=== PATIENT | female | born 1980 | race Caucasian/White ===

== ENCOUNTER 2017-06-09 08:13 | Inpatient (IN) | payer BC ==
[2017-06-09] VITALS (7 sets, daily range): BP systolic 130–148; BP diastolic 63–92
[~2017-06-09] VITALS: Ht 167.6 cm; Wt 88.6 kg
[~2017-06-09 08:13] MED LIST: ZANTAC150 MG PO
[2017-06-09 10:36] LABS: HEMATOCRIT 31.3 % (36.0-46.0); MCH 31.8 PG (29.0-34.0); MCHC 34.2 G/DL (30.0-36.0); MCV 92.9 FL (83-99); MEAN PLAT.VOLUME 12.8 uM^3 (9.5-12.4); PLATELET COUNT 134 K/uL (156-360); RBC DIS.WIDTH-SD 51.1 % (39-53); RED BLOOD COUNT 3.37 M/uL (3.80-5.20)
[2017-06-09 11:04] LABS: ANION GAP 9 MEQ/L (2-14); CHLORIDE 107 MEQ/L (99-109); POTASSIUM 4.1 MEQ/L (3.7-5.4); SAMPLE HEMOLYSIS CHECK 0; SAMPLE ICTERIC CHECK 0; SAMPLE LIPEMIA CHECK 0; SODIUM 139 MEQ/L (136-147); TOTAL BILIRUBIN 0.4 MG/DL (0.0-1.0)
[2017-06-09 11:09] LABS: ALKALINE PHOSPHATASE 116 IU/L (3-129); GFR ESTIMATE (CALCULATED) > 59 mL/min/; GLUCOSE 67 mg/dL (70-99); UREA NITROGEN (BUN) 6 mg/dL (9-23)
[2017-06-09] MEDS ORDERED: IBUPROFEN800 MG PO (13:34)
[2017-06-09] MEDS ORDERED: ENDOCET 5-3251 EACH PO (13:34)
[2017-06-09 13:54] LABS: POINT-OF-CARE METER ID UU13113675
[2017-06-10 03:05] VITALS: BP 125/60
[2017-06-10 07:09] LABS: EOSINOPHIL (%) 0.3 % (0-5); HEMATOCRIT 27.9 % (36.0-46.0); IMMATURE GRANULOCYTE (%) 0.7 % (0.0-0.7); IMMATURE GRANULOCYTE COUNT 0.1 K/uL; INSTRUMENT ABS NEUTROPHIL CT 9.5 K/uL; LYMPHOCYTE COUNT 2.1 K/uL (1.0-2.8); MCH 30.1 PG (29.0-34.0); MCHC 32.6 G/DL (30.0-36.0); MCV 92.4 FL (83-99); MEAN PLAT.VOLUME 12.6 uM^3 (9.5-12.4); MONOCYTE (%) 4.6 % (3-12); MONOCYTE COUNT 0.6 K/uL (0-0.8); NEUTROPHIL (%) 77.2 % (45-76); NEUTROPHIL COUNT 9.5 K/uL (1.8-6.4); PLATELET COUNT 129 K/uL (156-360); RBC DIS.WIDTH-CV 14.9 % (11.8-14.6); RBC DIS.WIDTH-SD 50.3 % (39-53); RED BLOOD COUNT 3.02 M/uL (3.80-5.20); WHITE BLOOD COUNT 12.4 K/uL (4.1-10.2)
[2017-06-10 07:11] VITALS: BP 119/65
[2017-06-10 11:34] VITALS: BP 126/72
[2017-06-10 15:03] VITALS: BP 135/82
[2017-06-10 19:36] VITALS: BP 132/79
[2017-06-10 23:08] VITALS: BP 120/71
[2017-06-11 03:17] VITALS: BP 124/72
[2017-06-11 08:18] VITALS: BP 126/80
[2017-06-11 10:39] VITALS: BP 137/89
[2017-06-11 14:35] VITALS: BP 137/77
== END 2017-06-11 16:30 | disposition home or self-care (01) | DRG 766 ==
LOC: 2WEST 08:13 → 2SOUTH 08:58 → 2WEST 06-11 16:30
PROVIDERS: Obstetrics & Gynecology
PROC: 10D00Z1 Extraction of Products of Conception, Low, Open Approach (ICD-10-PCS; principal; 2017-06-09)
DX: O36.63X0 Maternal care for excessive fetal growth, third trimester, not applicable or unspecified (principal); Z37.0 Single live birth; Z3A.39 39 weeks gestation of pregnancy; O09.523 Supervision of elderly multigravida, third trimester
CPT/HCPCS: 80053; 82948; 85025; 85027; 86900; 86901; J0690; J1100; J1200; J2274; J2405; J3010; J7120